=== PATIENT | female | born 1960 | race Caucasian/White ===

== ENCOUNTER 2019-11-02 14:32 | Emergency (ER) | payer SELFPAY ==
[~2019-11-02 14:32] MED LIST: AMOX500C2 PO; CPR500T PO; D-ME118S33 PO; METR500T PO
--- NOTE | 2019-11-02 15:50 | NUR ---
PATIENT NOT IN WAITING ROOM.
== END 2019-11-02 15:50 | disposition left against medical advice (07) ==
LOC: EDUNIT# 14:32 → ER 14:33
DX: R11.2 Nausea with vomiting, unspecified (principal)

== ENCOUNTER 2021-10-07 19:47 | Emergency (ER) | payer SELFPAY ==
[~2021-10-07] VITALS: Ht 170.1 cm; Wt 62.7 kg
--- NOTE | 2021-10-07 20:51 | ED Headache ---
General Stated Complaint: HEADACHE/FEVER Source: patient Exam Limitations: no limitations History of Present Illness Date Seen by Provider: Oct 07, 2021 Time Seen by Provider: 20:03 Initial Comments Patient to the ER by private conveyance with chief complaint that she has had a headache for the past 1 day with a fever T-max 100.3. He took some aspirin abo ut 3 hours prior to arrival. Her headache is down to a 4 out of 10. It is global nonthrobbing. No visual disturbances. No neurologic problems. No nausea vomiting diarrhea constipation or sick contacts. No cough. She is a smoker of cigarettes and frequent IV methamphetamine user. She has not noted any infected's injection sites. She says she injects in her left inguinal reg ion and it does not look or feel abnormal. No vaccination for COVID. Patient states she has a lot of cats in her home and is concerned about toxoplasmosis. Patient states she is had echocardiogram in 2016 here but we do not have any record of it. Allergies and Home Medications Allergies Coded Allergies: Codeine (Verified Allergy, Unknown, 09/06/12) Patient Home Medication List Home Medication List Reviewed: Yes Review of Systems Review of Systems Constitutional: No chills, No diaphoresis Eyes: Denies Blindness, Denies Blurred Vision Ears, Nose, Mouth, Throat: denies ear pain, denies ear discharge Respiratory: No cough, No short of breath Cardiovascular: No chest pain, No edema Gastrointestinal: No abdominal pain, No nausea, No vomiting Genitourinary: No discharge, No dysuria Musculoskeletal: No back pain, No joint pain All Other Systems Reviewed Negative Unless Noted: Yes Past Vqfqsjo-Oyijru-Iafmph Hx Patient Social History Tobacco Use?: No Use of E-Cig and/or Vaping dev: No Substance use?: No Past Medical History Reproductive Disorders: No Sexually Transmitted Disease: No Family Medical History No Pertinent Family Hx Physical Exam Vital Signs Vital Signs - First Documented 10/07/21 20:15 Temp 36.7 Pulse 80 Resp 20 B/P (MAP) 140/81 (100) Pulse Ox 98 O2 Delivery Room Air Capillary Refill : Height, Weight, BMI Height: 5'6" Weight: 125lbs. oz. 56.970512gz; BMI Method:Stated General Appearance: WD/WN, no apparent distress HEENT: PERRL/EOMI, normal ENT inspection, TMs normal, pharynx normal Neck: non-tender, full range of motion, supple, normal inspection Cardiovascular: normal peripheral pulses, regular rate, rhythm Respiratory: lungs clear, normal breath sounds, no respiratory distress, no accessory muscle use Gastrointestinal: normal bowel sounds, non tender, soft Extremities: normal range of motion, non-tender, normal capillary refill Psychiatric: alert, oriented x 3 Crainal Nerves: normal hearing, normal speech, PERRL Coordination/Gait: normal gait Motor/Sensory: no motor deficit, no sensory deficit Skin: normal color, warm/dry, other (Left inguinal injection site shows some track thompson and a mild amount of ecchymotic changes but no induration, fluctuance or erythema.) Progress/Results/Core Measures Results/Orders Lab Results Laboratory Tests Test 10/07/21 20:50 10/07/21 21:00 Range/Units SARS-CoV-2 RNA (RT-PCR) Not Detected Not Detecte White Blood Count 8.8 4.3-11.0 10^3/uL Red Blood Count 5.05 3.80-5.11 10^6/uL Hemoglobin 15.7 11.5-16.0 g/dL Hematocrit 47 35-52 % Mean Corpuscular Volume 93 80-99 fL Mean Corpuscular Hemoglobin 31 25-34 pg Mean Corpuscular Hemoglobin Concent 33 32-36 g/dL Red Cell Distribution Width 13.4 10.0-14.5 % Platelet Count 163 130-400 10^3/uL Mean Platelet Volume 11.3 9.0-12.2 fL Immature Granulocyte % (Auto) 1 % Neutrophils (%) (Auto) 69 42-75 % Lymphocytes (%) (Auto) 16 12-44 % Monocytes (%) (Auto) 13 H 0-12 % Eosinophils (%) (Auto) 0 0-10 % Basophils (%) (Auto) 1 0-10 % Neutrophils # (Auto) 6.1 1.8-7.8 10^3/uL Lymphocytes # (Auto) 1.4 1.0-4.0 10^3/uL Monocytes # (Auto) 1.2 H 0.0-1.0 10^3/uL Eosinophils # (Auto) 0.0 0.0-0.3 10^3/uL Basophils # (Auto) 0.0 0.0-0.1 10^3/uL Immature Granulocyte # (Auto) 0.0 0.0-0.1 10^3/uL Sodium Level 135 135-145 MMOL/L Potassium Level 3.8 3.6-5.0 MMOL/L Chloride Level 104 98-107 MMOL/L Carbon Dioxide Level 20 L 21-32 MMOL/L Anion Gap 11 5-14 MMOL/L Blood Urea Nitrogen 9 7-18 MG/DL Creatinine 0.72 0.60-1.30 MG/DL Estimat Glomerular Filtration Rate 95 BUN/Creatinine Ratio 13 Glucose Level 105 70-105 MG/DL Calcium Level 8.8 8.5-10.1 MG/DL Corrected Calcium 9.2 8.5-10.1 MG/DL Total Bilirubin 1.0 0.1-1.0 MG/DL Aspartate Amino Transf (AST/SGOT) 100 H 5-34 U/L Alanine Aminotransferase (ALT/SGPT) 81 H 0-55 U/L Alkaline Phosphatase 170 H 40-136 U/L C-Reactive Protein High Sensitivity 3.91 H 0.00-0.50 MG/DL B-Type Natriuretic Peptide 48.2 <100.0 PG/ML Total Protein 7.2 6.4-8.2 GM/DL Albumin 3.5 3.2-4.5 GM/DL My Orders Orders - ANGEL LUIS LARIOS Covid 19 Inhouse Test (10/07/21 20:03) Cbc With Automated Diff (10/07/21 20:26) Comprehensive Metabolic Panel (10/07/21 20:26) Hs C Reactive Protein (10/07/21 20:26) Blood Culture (10/07/21 20:26) Ct Head Wo (10/07/21 20:51) Chest 1 View, Ap/Pa Only (10/07/21 20:51) Bnp Tyson (10/07/21 21:00) Aspirin Tablet (Aspirin Tablet) (10/07/21 22:45) Vital Signs/I&O 10/07/21 20:15 Temp 36.7 Pulse 80 Resp 20 B/P (MAP) 140/81 (100) Pulse Ox 98 O2 Delivery Room Air Progress Progress Note #1: Time: 20:59 Progress Note Swab her for COVID check some basic labs. We will get blood cultures and she is an IV drug user to see if anything grows out. She is not having any chest pain. She does have a history of heart failure we will check a BNP. She does not appear to be in fluid overload. No JVD or other evidence of edema. CT of the head will rule out toxoplasmosis as well as look for other dangerous sources of her headache and fever. She has no symptoms of meningismus and has aseptic vital signs. She probably had a fever under control because of the aspirin she took. She has declined anything else for pain at this time. Progress Note #2: Time: 22:31 Progress Note The patient would like some aspirin for her headache. No evidence of toxoplasmosis on her CT of her head. Labs are largely unremarkable. Perhaps a viral infection? Still no signs of meningismus. Return precautions will be impressed upon her. We will follow the blood cultures. Diagnostic Imaging Diagonstic Imaging: Xray Plain Films/CT/US/NM/MRI: chest Comments [facility], [place] NAME: JOHN GIFFORD MED REC#: [id number] PT STATUS: REG ER : 1960 PHYSICIAN: ANGEL LUIS LARIOS MD ADMIT DATE: 10/07/21/ER Draft Date of Exam:10/07/21 CHEST 1 VIEW, AP/PA ONLY EXAM: CHEST 1 VIEW, AP/PA ONLY INDICATION: Headache. Fever. COMPARISON: Chest radiograph 09/08/2012. FINDINGS: Hyperinflation. No focal pulmonary opacity. No pleural effusion or pneumothorax. Normal heart size and central pulmonary vascularity. No acute osseous findings. IMPRESSION: 1. COPD. 2. No acute cardiopulmonary findings. Dictated on workstation # [id number] Dict: 10/07/21 223 Trans: 10/07/21 2233 [facility] [id number] Interpreted by: GERARD POTTS MD Electronically signed by: Reviewed: Reviewed by Me Diagonstic Imaging: CT Plain Films/CT/US/NM/MRI: head Comments [facility] [place] [place] NAME: LEX GIFFORDBRENDAN Hilario MED REC#: [id number] PT STATUS: REG ER : 1960 PHYSICIAN: ANGEL LUIS LARIOS MD ADMIT DATE: 10/07/21/ER Draft Date of Exam:10/07/21 CT HEAD WO PROCEDURE: CT head without contrast. TECHNIQUE: Multiple contiguous axial images were obtained through the brain without the use of intravenous contrast. Auto Exposure Controls were utilized during the CT exam to meet ALARA standards for radiation dose reduction. INDICATION: Headache. Fever. COMPARISON: None. FINDINGS: No intracranial hemorrhage, mass effect, hydrocephalus or extra-axial fluid collections. No CT evidence of a territorial infarction. Mild generalized parenchymal volume loss is age appropriate. Paranasal sinuses and mastoids are clear. No acute osseous findings. IMPRESSION: No acute intracranial CT findings. Dictated on workstation # [id number] Dict: 10/07/212216 Trans: 10/07/212221 [facility] [id number] Interpreted by: GERARD POTTS MD Electronically signed by: Reviewed: Reviewed by Me Departure Impression Primary Impression: Viral syndrome Disposition: HOME, SELF-CARE Condition: Stable Departure-Patient Inst. Decision time for Depature: 23:01 Referrals: KARY LIRA MD FACP FAC CCDS NO,LOCAL PHYSICIAN (PCP) Primary Care Physician Patient Instructions: Fever, Adult (DC), LOCAL PHYSICIAN LIST Add. Discharge Instructions: Continue to use aspirin or ibuprofen as necessary to control your fever symptoms. Drink plenty of fluids. If you are having significantly worsening symptoms, fever that will not go away, dehydration, confusion or other worrisome symptoms then return to the ER promptly for reevaluation. Establish care with a primary care provider to discuss treatment for hepatitis as well as managing your symptoms. Make a follow-up appointment with Dr. Lira, cardiology to discuss management of your heart failure and whether echocardiogram would be advisable given your history of IV drug use and heart failure. ANGEL LUIS LARIOS J Oct 07, 2021 20:50
[2021-10-07 21:22] LABS: BASOPHILS % (AUTO) 1 % (0-10); EOSINOPHILS % (AUTO) 0 % (0-10); HEMATOCRIT 47 % (35-52); HEMOGLOBIN 15.7 g/dL (11.5-16.0); LYMPHOCYTES # (AUTO) 1.4 10^3/uL (1.0-4.0); LYMPHOCYTES % (AUTO) 16 % (12-44); MEAN CORPUSCULAR HEMOGLOBIN 31 pg (25-34); MEAN CORPUSCULAR HGB CONC 33 g/dL (32-36); MEAN CORPUSCULAR VOLUME 93 fL (80-99); MEAN PLATELET VOLUME 11.3 fL (9.0-12.2); MONOCYTES # (AUTO) 1.2 10^3/uL (0.0-1.0); MONOCYTES % (AUTO) 13 % (0-12); NEUTROPHILS # (AUTO) 6.1 10^3/uL (1.8-7.8); NEUTROPHILS % (AUTO) 69 % (42-75); PLATELET COUNT 163 10^3/uL (130-400); WHITE BLOOD COUNT 8.8 10^3/uL (4.3-11.0)
[2021-10-07 21:40] LABS: ALBUMIN 3.5 GM/DL (3.2-4.5); POTASSIUM 3.8 MMOL/L (3.6-5.0)
[2021-10-07 21:41] LABS: CALCIUM 8.8 MG/DL (8.5-10.1)
[2021-10-07 21:42] LABS: TOTAL PROTEIN 7.2 GM/DL (6.4-8.2)
[2021-10-07 21:46] LABS: CREATININE SERUM 0.72 MG/DL (0.60-1.30)
--- NOTE | 2021-10-07 22:22 | Diagnostic Imaging Report ---
PROCEDURE: CT head without contrast. TECHNIQUE: Multiple contiguous axial images were obtained through the brain without the use of intravenous contrast. Auto Exposure Controls were utilized during the CT exam to meet ALARA standards for radiation dose reduction. INDICATION: Headache. Fever. COMPARISON: None. FINDINGS: No intracranial hemorrhage, mass effect, hydrocephalus or extra-axial fluid collections. No CT evidence of a territorial infarction. Mild generalized parenchymal volume loss is age appropriate. Paranasal sinuses and mastoids are clear. No acute osseous findings. IMPRESSION: No acute intracranial CT findings. Dictated by: Dictated on workstation # [id number]
--- NOTE | 2021-10-07 22:34 | Diagnostic Imaging Report ---
EXAM: CHEST 1 VIEW, AP/PA ONLY INDICATION: Headache. Fever. COMPARISON: Chest radiograph 09/08/2012. FINDINGS: Hyperinflation. No focal pulmonary opacity. No pleural effusion or pneumothorax. Normal heart size and central pulmonary vascularity. No acute osseous findings. IMPRESSION: 1. COPD. 2. No acute cardiopulmonary findings. Dictated by: Dictated on workstation # [id number]
[2021-10-07] MEDS ORDERED: ASPIRIN 325 MG (5 GR) TABLET PO ONE (22:45)
[2021-10-07 23:12] VITALS: BP 138/76
== END 2021-10-07 23:16 | disposition home or self-care (01) ==
LOC: EDUNIT# 19:47 → ER 19:48
DX: B34.9 Viral infection, unspecified (principal); F17.210 Nicotine dependence, cigarettes, uncomplicated; Z20.822 Contact with and (suspected) exposure to COVID-19
CPT/HCPCS: 36415; 70450; 71045; 80053; 83880; 85025; 86141; 87040; 87636